=== PATIENT | female | born 1960 | race Caucasian/White ===

== ENCOUNTER 2017-01-28 14:59 | Observation (INO) ==
--- NOTE | 2017-01-28 15:31 | Emergency Department Note ---
Arrival - Arrival Chief Complaint: Abdominal / Flank Pain ED Nursing Triage Note: pt was transfered from [facility] for an appy and [facility] Mode of Arrival: Stretcher Source: Patient - History of Present Illness HPI Narrative: Patient is a 56-year-old white female with a history of right lower quadrant abdominal pain for 2 days which is progressively worsening. This pain is associated with anorexia and nausea. Patient was initially seen by Dr. Conde in his clinic and underwent a urinalysis which was negative and rapid strep test which was positive. Patient was given Bicillin LA. She was sent to [facility] for CT scan. Patient was seen at [facility] ED and underwent a CT scan of the abdomen which apparently reveals conflicting reports. Virtual radiology read this as negative for acute appendicitis however the local radiologist, Dr. Cornejo, thought that the scan was consistent with acute appendicitis. This is based upon obtaining the report verbally from Dr. Vick. Patient was seen by Dr. Vick. He clinically felt that the patient had an acute appendicitis and therefore the patient was transferred to [facility]. Onset (ago): day(s) (2) Consistency: constant Severity: moderate Quality: aching Allergies/Adverse Reactions: Allergies Allergy/AdvReac Type Severity Reaction Status Date / Time Sulfa (Sulfonamide Allergy Unknown/Unable Verified 01/28/17 15:06 Antibiotics) to obtain Home Medications: Home Medications Medication Instructions Recorded Confirmed Type Lisinopril/Hydrochlorothiazide 1 each PO DAILY 01/28/17 01/28/17 History [Lisinopril-Hctz 20-12.5 mg Tab] Zolpidem [Ambien] 10 mg PO BEDTIME 01/28/17 01/28/17 History HYDROcodone/ACETAMIN 7.5-325 1 tablet PO Q4H PRN #20 tablet 01/29/17 Rx [[place] 7.5-325] Review of System - Review of System 12 point system: reviewed and no additional remarkable complaints except as stated Medical,Surgical,& Family Hx - Medical History Cardio: History of: Hypertension Gastrointestinal: History of: GERD - Social History Smoking Status: Never smoker Frequency of Alcohol Use: Rarely Type of Drug Use: None Exam Vital Signs: Vital Signs Temperature 98.4 F 01/29/17 07:27 Pulse Rate 80 01/29/17 07:27 Respiratory Rate 20 01/29/17 07:27 Blood Pressure 115/72 01/29/17 07:27 O2 Sat by Pulse Oximetry 95 01/29/17 10:05 GENERAL: This is a well-nourished well-developed white female in no apparent distress. VITAL SIGNS: Reviewed HEENT: Head is atraumatic and normocephalic. Pupils are equal round react to light. Extraocular movements are intact. Oropharynx is benign with moist mucous membranes. NECK: Neck is soft and supple without tenderness. There are no masses. There is no lymphadenopathy. LUNGS: Lungs are clear to auscultation. Chest rises symmetrically. There is no chest wall tenderness. CV: Heart is regular rate and rhythm without murmurs rubs or gallops. ABDOMEN: Abdomen is soft, tender to palpation in the right lower quadrant with some guarding. There are no abdominal abnormal masses palpated. There is no organomegaly. Bowel sounds are present. Positive heel tap. SKIN: Skin is warm and dry. No rash. EXTREMITIES: Patient has full range of motion without tenderness. There is no pedal edema. NEUROLOGIC: Awake alert and oriented 4. Cranial nerves II through XII are grossly intact. Motor is 5 over 5 in all extremities bilaterally. Course - Consultations Consultation #1: Discussed with Dr. Alayna SAENZ. Patient will be seen in the emergency department. Time: 15:33 Results - Labs Lab Results: I have reviewed the patients labs Labs: Labs from [facility] reviewed by me. Disposition Clinical Impression: Right lower quadrant abdominal pain, Acute appendicitis Case discussed with: patient Disposition: Still a Patient Condition: Stable New Prescriptions: Rx's Medication Instructions Recorded HYDROcodone/ACETAMIN 7.5-325 1 tablet PO Q4H PRN #20 tablet 01/29/17 [[place] 7.5-325] Time of Disposition: 15:34
[2017-01-28] MEDS ORDERED: FAMOTIDINE 20 MG/2 ML VIAL IV STA (15:39)
--- NOTE | 2017-01-28 16:10 | General Surg History&Physical ---
Assessment and Plan - Time spent with patient Time spent with patient: Less than 30 minutes (1) Right lower quadrant abdominal pain Status: Acute Assessment and plan: She has significant tenderness and history and physical findings consistent with acute appendicitis. We discussed laparoscopy and appendectomy. We discussed the small possibility that there would be pathology other than her appendix causing her pain and hopefully this can be visualized with laparoscopy if this is the case. We discussed the procedure and risks including negative appendectomy or need for other procedures as well as the small chance of injury to other organs infections bleeding etc. she understands these risks and wishes to proceed Current Visit: Yes History of Present Illness Chief complaint: Abdominal pain History of present illness: Ms. Bean is a 56 year old female Who had a gradual onset of right lower quadrant abdominal pain 3 days ago. The pain has been constant and worse with movement or walking. It feels better if she lays still. The pain has been moderate in severity. It is been accompanied by nausea but no vomiting. She has had anorexia. She has not had fever or chills. She had an abdominal CT scan which has had 2 different interpretations by radiology but the local radiologist felt that it was consistent with acute appendicitis. Her pain has gotten persistently and steadily worse Allergies Allergy/AdvReac Type Severity Reaction Status Date / Time Sulfa (Sulfonamide Allergy Unknown/Unable Verified 01/28/17 15:06 Antibiotics) to obtain Medical,Surgical,& Family Hx - Medical History Cardio: History of: Hypertension Gastrointestinal: History of: GERD - Surgical History Reproductive Surgeries: Surgical HX of;: Tubal Ligation - Family History Family History: noncontributory - Social History Smoking Status: Never smoker Frequency of Alcohol Use: Rarely Type of Drug Use: None Exam - Constitutional Vitals: Period Temp Pulse Resp BP Sys/Moran Pulse Ox Last 24 Hr 99.0 F-99.0 F 82-82 18-18 111-111/67-67 95 General appearance: no acute distress - Head Head exam: Present: normocephalic - Eye Eye exam: Absent: scleral icterus - ENT Mouth exam: Present: normal voice - Neck Neck exam: Present: trachea midline - Respiratory Respiratory exam: Present: clear to auscultation bilaterally. Absent: accessory muscle use - Cardiovascular Cardiovascular exam: Present: RRR - GI/Abdominal GI/Abdominal exam: Present: tenderness, soft. Absent: distended, guarding, mass , rebound - Extremities Exam Extremities exam: Absent: edema - Neurological Exam Neurological exam: Present: alert, oriented X3. Absent: motor sensory deficit Speech: Present: normal - Skin Skin exam: Present: normal color - Constitutional Constitutional: Present: anorexia. Absent: chills, fever(s) - Cardiovascular Cardiovascular: Absent: chest pain at rest, chest pain with activity, dyspnea, dyspnea on exertion - Respiratory Respiratory: Absent: dyspnea, dyspnea on exertion - Gastrointestinal Gastrointestinal: Present: abdominal pain, nausea. Absent: diarrhea, hematemesis, hematochezia, vomiting, jaundice - Genitourinary Genitourinary: Absent: hematuria - Musculoskeletal Musculoskeletal: Absent: back pain - Endocrine Endocrine: Absent: polyuria Results - Labs Lab Results: I have reviewed the past 24 hour labs - Diagnostic Findings Procedure: CT Abdomen and Pelvis: report reviewed by me
[2017-01-28] MEDS ORDERED: GABAPENTIN 100 MG CAPSULE ONE (16:12)
[2017-01-28] MEDS ORDERED: BUPIVACAINE MPF 0.25% /EPI 30 ML VIAL ONE (16:12)
[2017-01-28] MEDS ORDERED: GABAPENTIN 300 MG CAPSULE ONE (16:12)
[2017-01-28] MEDS ORDERED: ACETAMINOPHEN 500 MG TABLET ONE (16:13)
[2017-01-28] MEDS ORDERED: GABAPENTIN 400 MG CAPSULE PO PRN (16:19)
[2017-01-28] MEDS ORDERED: ACETAMINOPHEN 500 MG TABLET PO ONE (16:19)
[2017-01-28] MEDS ORDERED: GLYCOPYRROLATE 0.4 MG/2 ML VIAL ONE (16:20)
[2017-01-28] MEDS ORDERED: NEOSTIGMINE 10 MG/10 ML VIAL ONE (16:20)
[2017-01-28] MEDS ORDERED: PHENYLEPHRINE 1 MG/10 ML SYRINGE IV ONE (16:20)
[2017-01-28] MEDS ORDERED: ONDANSETRON 4 MG/2 ML VIAL ONE (16:20)
[2017-01-28] MEDS ORDERED: PROPOFOL 200 MG/20 ML VIAL IV ONE (16:20)
[2017-01-28] MEDS ORDERED: KETOROLAC 30 MG/1 ML VIAL ONE (16:20)
[2017-01-28] MEDS ORDERED: DEXAMETHASONE 10 MG/1 ML VIAL ONE (16:20)
[2017-01-28] MEDS ORDERED: LIDOCAINE 2% 5 ML VIAL ONE (16:20)
[2017-01-28] MEDS ORDERED: FAMOTIDINE 20 MG TABLET ONE (16:20)
[2017-01-28] MEDS ORDERED: ROCURONIUM 100 MG/10 ML VIAL IV ONE (16:20)
[2017-01-28] MEDS ORDERED: TISSUE ADHESIVE 1 EACH APPLICATOR TOP ONE (17:02)
[2017-01-28] MEDS ORDERED: ONDANSETRON 4 MG/2 ML VIAL IV PRN (17:18)
[2017-01-28] MEDS ORDERED: MORPHINE 2 MG/1 ML SYRINGE IV PRN (17:18)
--- NOTE | 2017-01-28 17:18 | Operative Note ---
Date of procedure: 01/28/17 Pre-op diagnosis: Acute appendicitis Post-op diagnosis: same Procedure: Laparoscopic appendectomy Findings and technique: After informed consent was obtained the patient was brought to the operating room and placed in supine position. After successful induction of general anesthesia the patient's abdomen was prepped and draped in usual sterile fashion. Local anesthesia was infiltrated the umbilicus and an open technique used in the peritoneal cavity under direct vision. Camera was inserted and 5 mm ports placed on the left lower quadrant and right upper quadrant under camera vision. The colon appeared normal. The gallbladder and liver appeared normal. Patient had an acutely inflamed appendix with some purulent exudate on the surface but no evidence of perforation gangrene or abscess. The appendix was grasped and retracted upwards and Endo CECILLE stapling device fired across the base of the appendix and across the mesoappendix with vascular ted. The appendix was placed in an Endo Catch bag and brought out through the umbilical port site. Staple lines were inspected and no bleeding noted. The ports removed and no bleeding noted from the port sites. Gas was evacuated from the abdomen and the fascial defect at the umbilicus closed with a running 0 Monocryl suture. Skin incisions were closed with 4-0 Vicryl subcuticular suture and tissue adhesive. She appeared to tolerate the procedure well. Anesthesia: JOHNNYA, local Surgeon / Physician: Luan Catalan III. Estimated blood loss: none Specimens: other (Appendix) Condition: stable Disposition: PACU
--- NOTE | 2017-01-28 17:26 | Anesthesia Post-Op ---
Anesthesia Post OP - Post Ansesthetic Evaluation Patient seen in post op: Yes Resp: within normal limits CV: within normal limits Mental: within normal limits Temp: within normal limits [id number]: within normal limits Nausea and Vomiting: within normal limits Pain: within normal limits
[2017-01-28] MEDS ORDERED: DEXTROSE 5% LACTATED RINGERS 1,000 ML IV SCH (17:30)
[2017-01-28] MEDS ORDERED: fentaNYL 100 MCG/2 ML VIAL ONE (17:31)
[2017-01-28] MEDS ORDERED: SEVOFLURANE 1 UNIT/15 MINUTE INH ONE (17:31)
[2017-01-28] MEDS ORDERED: MIDAZOLAM 2 MG/2 ML VIAL ONE (17:31)
[2017-01-28] MEDS ORDERED: FAMOTIDINE 20 MG/2 ML VIAL IV ONE (17:32)
[2017-01-28] MEDS ORDERED: LACTATED RINGERS 1,000 ML IV ONE (17:32)
[2017-01-29 07:28] VITALS: BP 115/72
--- NOTE | 2017-01-29 09:09 | Event Note ---
She feels better. Her abdominal pain is resolved. She is afebrile and her abdomen is benign. We will discharge her home with plans to follow-up in my office in 1 week.
--- NOTE | 2017-01-29 10:22 | Discharge Summary ---
Hospital Course - Hospital Course Hospital Course: Patient is a 56-year-old female who presented with acute appendicitis underwent laparoscopic appendectomy. Pathology is pending. No complications to note. Overnight, her pain has been adequately controlled. She is tolerating oral intake and voiding without difficulty. She has not has no complaints at the time of my visit and is ready for discharge. She was discharged home in good condition. 1 week follow-up with Dr. Catalan Diagnosis - Discharge Diagnosis (1) Acute appendicitis Status: Acute Specialty Discharge - Follow Up or Referrals Follow up with: Luan Catalan III., MD [Physician] - 1 Week Discharge Plan - Discharge Data Disposition: Disch To Home/Self Care Condition at Discharge: Stable Discharge Diet: advance to your usual diet Activity: no lifting (No lifitng > 10 lb) Driving: other (While taking narcotics) Contact your physician if you experience:: fever over 101, Difficulty voiding, Redness or swelling, Nausea/Vomiting, Shortness of breath, Bleeding, pain uncontrolled by pain medications Wound / Dressing Care Instructions: Keep surgical incisions clean and dry. May shower. Do not soak or submerge wounds. Pat dry. - Discharge Medications New HYDROcodone/ACETAMIN 7.5-325 [[place] 7.5-325] 1 tablet PO Q4H PRN #20 tablet PRN Reason: Pain Moderate To Severe (4-10) Continue Lisinopril/Hydrochlorothiazide [Lisinopril-Hctz 20-12.5 mg Tab] 1 each PO DAILY Zolpidem [Ambien] 10 mg PO BEDTIME - Follow Up or Referral Follow Up: Luan Catalan III., MD [Physician] - 1 Week - Forms/Instructions Instructions: Laparoscopic Appendectomy (DC) Exam - Constitutional Vitals: Period Temp Pulse Resp BP Sys/Moran Pulse Ox Last 24 Hr 98.0 F-99.8 F 64-92 16-20 86-121/50-72 89-100 Oxygen saturations 95% at the time of my visit General appearance: no acute distress - Head Head exam: Present: normal inspection, normocephalic - Eye Eye exam: Absent: conjunctival injection, scleral icterus - Respiratory Respiratory exam: Present: clear to auscultation bilaterally - Cardiovascular Cardiovascular exam: Present: regular rate and rhythm - GI/Abdominal GI/Abdominal exam: Present: tenderness (Minimal tenderness about the incision sites. Surgical incisions are clean, dry and intact. Mild ecchymosis around the umbilicus.), soft. Absent: distended, firm, guarding - Extremities Exam Extremities exam: Absent: calf tenderness, edema - Neurological Exam Neurological exam: Present: alert, oriented X3 - Psychiatric Psychiatric exam: Present: normal affect, normal mood - Skin Skin exam: Present: normal color, warm Discharge Results Procedures and tests throughout hospitalization: Upper scopic appendectomy. Pathology pending. - Imaging and Cardiology Procedure: CT Abdomen and Pelvis: image reviewed by me, report reviewed by me ( Films from external facility) DS: Provider Date of admission: 01/28/17 15:38 Primary care physician: . No PCP Attending physician on admission: Luan Catalan III., Consults: None Discharging clinician: Allie Jj PA-C
--- NOTE | 2017-01-30 11:20 | Pathology Report from [facility] ---
[facility] ACCESSION # : [id number] PATIENT NAME : Allie Horta ORDERING DR : AJAY JOSEPH III, MD CLINICAL HX: Acute appendicitis POST-OP DX: Same SPECIMEN INFO: Appendix GROSS DESCRIPTION: Received in formalin labeled ALLIE HORTA is an appendix and attached mesoappendix measuring 5 x 1.1 cm. The serosa is pink mcdonald with fibrinous exudate present. The cut surfaces are unremarkable. No fecaliths or perforations are identified. Insurance Sales Agent sections are submitted in one cassette. DIAGNOSIS FOR ALLIE HORTA: APPENDIX, APPENDECTOMY: Acute appendicitis. COLLECTED DATE: 01/29/2017 [facility] REPORT DATE: 01/30/2017 ELECTRONICALLY SIGNED BY: Anna Marsh M.D. 01/30/2017 - 9:55:50 [facility]
== END 2017-01-29 11:25 | disposition home or self-care (01) ==
LOC: EDBD → EDUNIT# → N.EDINP 14:59 → N.ED 14:59 → N.3E 15:53
PROVIDERS: ADMIT Surgery; ATTEND Surgery